=== PATIENT | female | born 1985 | race Caucasian/White ===

== ENCOUNTER 2017-11-02 04:17 | Emergency (ER) | payer BC, SELFPAY ==
[2017-11-02] MEDS ORDERED: Lidocaine 4% Cream 5 GM TUBE w/ Tegaderm ONE (04:47)
[2017-11-02] MEDS ORDERED: Acetaminophen 500 MG TAB ONE (04:53)
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
== END 2017-11-02 06:25 | disposition home or self-care (01) ==
LOC: MADERS 04:17
DX: S01.01XA Laceration without foreign body of scalp, initial encounter (principal); V86.59XA Driver of other special all-terrain or other off-road motor vehicle injured in nontraffic accident, initial encounter
CPT/HCPCS: 12001; 70450; 93005; G0390

== ENCOUNTER 2023-01-24 16:55 | Emergency (ER) | payer BC, OTHER ==
[2023-01-24] MEDS ORDERED: Boostrix 0.5 ML (Tdap) VIAL (>/=7 yrs of age) ONE (18:46)
[2023-01-24] MEDS ORDERED: Acetaminophen 325 MG TAB ONE (18:59)
[2023-01-24] MEDS ORDERED: Lidocaine 1% PF 5 ML VIAL ONE (19:39)
== END 2023-01-24 20:04 | disposition home or self-care (01) ==
LOC: MADERS 16:55
DX: S00.05XA Superficial foreign body of scalp, initial encounter (principal); X58.XXXA Exposure to other specified factors, initial encounter
CPT/HCPCS: 64450; 90471; 90715

== ENCOUNTER 2023-11-30 21:44 | Emergency (ER) | payer OTHER ==
[~2023-11-30 21:44] MED LIST: Iopamidol 370 76% 100 ML VIAL ONE
[2023-11-30 21:59] LABS: Bilirubin Negative (Negative); Blood, Urine Trace (Negative); Clarity Clear (Clear); Glucose, Urine (Dipstick) Negative (Negative); Ketone, Urine 80 mg/dL (Negative); Leukocyte Negative (Negative); Nitrite Negative (Negative); Protein, Urine (Dipstick) Negative (Neg-Trace); Urobilinogen 0.2 mg/dL (Less than 2)
[2023-11-30 22:02] LABS: CAUTI Indications for Culture Pelvic or flank pain; Pregnancy Test - Urine (BHCG) Negative (Negative); Pregu Control Background? CLEAR/WHITE (CLR/WHITE); Pregu Control Bar Appear? YES (CONTROL BAR); Squamous Epithelial 0-3 HPF (0-3); WBC/HPF 0-3 HPF (0-3)
[2023-11-30 22:03] LABS: Urine Culture Reflex No No
[2023-11-30] MEDS ORDERED: Morphine 4 MG/ML VIAL ONE (22:17)
[2023-11-30] MEDS ORDERED: Sodium Chloride 0.9% 1,000 ML ONE ×2 (22:17→23:59)
[2023-11-30] MEDS ORDERED: Ondansetron PF 4 MG/2 ML Vial ONE (22:17)
[2023-11-30 22:44] LABS: #Basophils 0.1 thou/uL (0.0-0.2); #Lymphocytes 1.6 thou/uL (1.20-3.40); #Monocytes 1.1 thou/uL (0.11-0.59); #Neutrophils 14.5 thou/uL (1.40-6.50); %Basophils 0.5 % (0.0-1.0); %Lymphocytes 9.4 % (21.0-51.0); %Monocytes 6.1 % (0.0-10.0); %Neutrophils 83.9 % (42.0-75.0); Hematocrit 39.5 % (36.0-47.0); Hemoglobin 12.8 g/dL (12.0-16.0); Mean Corpuscular HGB CONC 32.4 g/dL (32.0-36.0); Mean Corpuscular Hemoglobin 30.1 pg (27.0-31.0); Platelet Count 164 10x3/uL (130-400); RBC Distribution Width 11.6 % (11.5-14.5); Red Blood Cell (RBC) Count 4.25 mill/uL (4.20-5.40); White Blood Cell (WBC) Count 17.2 10x3/uL (4.8-10.8)
[2023-11-30 23:05] LABS: ALT (SGPT) 12 U/L (8-55); AST (SGOT) 15 U/L (5-34); Albumin 4.1 g/dL (3.5-5.0); Alkaline Phosphatase 43 U/L (40-110); Anion Gap 15 mmol/L (10-20); BUN (Urea Nitrogen) 11 mg/dL (7.0-18.7); Bilirubin, Total 1.3 mg/dL (0.2-1.2); Calc. Creatinine Clearance 0 mL/min (70-130); Calcium 9.4 mg/dL (7.8-10.44); Carbon Dioxide 21 mmol/L (22-29); Chloride 104 mmol/L (98-107); Estimated GFR 98; Globulin 3.2 g/dL (2.4-3.5); Glucose 126 mg/dL (70-105); Lipase 21 U/L (8-78); Protein, Total 7.3 g/dL (6.0-8.3); Sodium 136 mmol/L (136-145)
[2023-11-30] MEDS ORDERED: fentaNYL 50 mcg/mL 1 mL Vial ONE (23:34)
[2023-11-30] MEDS ORDERED: Sodium Chloride 0.9% 100 ML ONE (23:34)
[2023-11-30] MEDS ORDERED: Piperacillin/Tazobactam 4.5 GM VIAL ONE (23:34)
[2023-12-01] MEDS ORDERED: Ondansetron PF 4 MG/2 ML Vial ONE (01:20)
== END 2023-12-01 01:34 | disposition short-term general hospital (02) ==
LOC: MADERS 21:44
DX: K35.30 Acute appendicitis with localized peritonitis, without perforation or gangrene (principal); E86.0 Dehydration; F17.290 Nicotine dependence, other tobacco product, uncomplicated
CPT/HCPCS: 74177; 80053; 81001; 81025; 83690; 85025; 94760; 96361; 96365; 96375; 96376; J2272; J2405; J2543; J3010; J7030; Q9967